=== PATIENT | female | born 1990 | race Caucasian/White ===

== ENCOUNTER → 2019-09-02 14:11 | Outpatient (CLI) | payer SELFPAY ==
[2019-09-02 16:07] LABS: BILIRUBIN NEGATIVE (NEGATIVE); GLUCOSE NEGATIVE (NEGATIVE); KETONE NEGATIVE (NEGATIVE); NITRITE NEGATIVE (NEGATIVE); UROBILINOGEN NORMAL (NORMAL)
== END | disposition home or self-care (01) ==
LOC: D.LDO 14:11
PROVIDERS: ATTEND Obstetrics & Gynecology
DX: O26.899 Other specified pregnancy related conditions, unspecified trimester (principal); Z3A.00 Weeks of gestation of pregnancy not specified; R11.0 Nausea

== ENCOUNTER 2019-09-05 08:21 | Outpatient (CLI) | payer SELFPAY ==
[2019-09-05 09:11] LABS: UDS - AMPHET NEGATIVE QUAL (NEGATIVE); UDS - BARB NEGATIVE QUAL (NEGATIVE); UDS - BENZO NEGATIVE QUAL (NEGATIVE); UDS - COCAINE NEGATIVE QUAL (NEGATIVE); UDS - OPIATE NEGATIVE QUAL (NEGATIVE); UDS - PCP NEGATIVE QUAL (NEGATIVE); UDS - THC NEGATIVE QUAL (NEGATIVE)
== END 2019-09-05 09:10 | disposition home or self-care (01) ==
LOC: D.LDO 08:21
PROVIDERS: ATTEND Obstetrics & Gynecology
DX: O26.899 Other specified pregnancy related conditions, unspecified trimester (principal); Z3A.00 Weeks of gestation of pregnancy not specified; N85.8 Other specified noninflammatory disorders of uterus; M54.9 Dorsalgia, unspecified

== ENCOUNTER → 2019-09-10 17:20 | Outpatient (CLI) | payer SELFPAY ==
[2019-09-10 18:23] LABS: BILIRUBIN NEGATIVE (NEGATIVE); GLUCOSE NEGATIVE (NEGATIVE); KETONE NEGATIVE (NEGATIVE); NITRITE NEGATIVE (NEGATIVE); SPECIFIC GRAVITY 1.015 (1.005-1.020); UROBILINOGEN NORMAL (NORMAL)
[2019-09-10 18:43] LABS: UDS - AMPHET NEGATIVE QUAL (NEGATIVE); UDS - BARB NEGATIVE QUAL (NEGATIVE); UDS - BENZO NEGATIVE QUAL (NEGATIVE); UDS - COCAINE NEGATIVE QUAL (NEGATIVE); UDS - OPIATE NEGATIVE QUAL (NEGATIVE); UDS - PCP NEGATIVE QUAL (NEGATIVE); UDS - THC NEGATIVE QUAL (NEGATIVE)
== END | disposition home or self-care (01) ==
LOC: D.LDO 17:20
PROVIDERS: ATTEND Obstetrics & Gynecology
DX: O26.893 Other specified pregnancy related conditions, third trimester (principal); Z3A.36 36 weeks gestation of pregnancy; N93.9 Abnormal uterine and vaginal bleeding, unspecified; R10.9 Unspecified abdominal pain

== ENCOUNTER 2019-09-21 03:56 | Outpatient (CLI) | payer SELFPAY ==
[2019-09-21 04:59] LABS: BILIRUBIN NEGATIVE (NEGATIVE); GLUCOSE NEGATIVE (NEGATIVE); KETONE NEGATIVE (NEGATIVE); NITRITE NEGATIVE (NEGATIVE); UROBILINOGEN NORMAL (NORMAL)
== END 2019-09-21 07:45 | disposition home or self-care (01) ==
LOC: D.LDO 03:56
PROVIDERS: ATTEND Obstetrics & Gynecology
DX: O26.899 Other specified pregnancy related conditions, unspecified trimester (principal); Z3A.00 Weeks of gestation of pregnancy not specified; R10.9 Unspecified abdominal pain; R06.02 Shortness of breath; R42 Dizziness and giddiness; R51 Headache

== ENCOUNTER 2019-09-30 11:43 | Outpatient (CLI) | payer SELFPAY ==
[2019-10-01] MEDS ORDERED: PROTONIX40 MG PO (05:49)
[2019-10-01 06:06] VITALS: BMI 31.8
== END 2019-09-30 12:09 | disposition home or self-care (01) ==
LOC: D.LDO 11:43
PROVIDERS: ATTEND Obstetrics & Gynecology
DX: O26.893 Other specified pregnancy related conditions, third trimester (principal); Z3A.39 39 weeks gestation of pregnancy

== ENCOUNTER 2019-10-01 04:59 | Inpatient (IN) | payer MEDICAID ==
[~2019-10-01] VITALS: Ht 165.1 cm; Wt 86.8 kg
[2019-10-01] MEDS ORDERED: PROTONIX40 MG PO (05:49)
[2019-10-01 06:06] VITALS: BP 120/80; Ht 165.1 cm; Wt 86.8 kg
[2019-10-01 06:32] LABS: HEMATOCRIT 30.5 % (36.0-48.0); HEMOGLOBIN 9.6 g/dL (12-16); MCH 26.3 pg (26.0-34.0); MCHC 31.5 g/dL (31.0-37.0); MCV 83.6 fL (80.0-100.0); RBC 3.65 10x6/uL (4.00-5.40); RDW 15.3 % (11.5-14.5); WBC 10.2 10x3/uL (4.8-10.8)
[2019-10-01 06:34] LABS: UDS - AMPHET NEGATIVE QUAL (NEGATIVE); UDS - BARB NEGATIVE QUAL (NEGATIVE); UDS - BENZO NEGATIVE QUAL (NEGATIVE); UDS - COCAINE NEGATIVE QUAL (NEGATIVE); UDS - OPIATE NEGATIVE QUAL (NEGATIVE); UDS - PCP NEGATIVE QUAL (NEGATIVE); UDS - THC NEGATIVE QUAL (NEGATIVE)
--- NOTE | 2019-10-01 17:35 | NUR ---
RECIEVED PT FROM L&D. PATIENT ORIENTATED TO ROOM. DENIES NEEDS OR PAIN AT THIS TIME. CALL LIGHT IN REACH, SIDE RAILS UP X 2.
[2019-10-01 17:50] LABS: BASOPHILS 0.1 % (0-2); EOSINOPHILS 0.7 % (0-7); HEMATOCRIT 26.8 % (36.0-48.0); HEMOGLOBIN 8.2 g/dL (12-16); IMMATURE GRANULOCYTES 0.5 % (0-5); LYMPHOCYTES 11.3 % (15-50); MCH 26.1 pg (26.0-34.0); MCHC 30.6 g/dL (31.0-37.0); MCV 85.4 fL (80.0-100.0); MONOCYTES 7.3 % (2-11); NEUTROPHILS 80.1 % (40-80); RBC 3.14 10x6/uL (4.00-5.40); RDW 15.3 % (11.5-14.5)
[2019-10-01 17:51] LABS: PLATELET COUNT 148 10x3/uL (130-400); WBC 12.8 10x3/uL (4.8-10.8)
--- NOTE | 2019-10-01 18:40 | NUR ---
ROUDNING WITH PATIENT. PATIENT DENIES ANY PAIN OR NEEDS AT THIS TIME. CALL LIGHT IN REACH, SIDE RAILS UP X2.
--- NOTE | 2019-10-01 19:24 | NUR ---
CASE MANAGEMENT IN ROOM AT THIS TIME
[2019-10-01 19:35] VITALS: BP 110/59
--- NOTE | 2019-10-01 19:35 | NUR ---
ASSESSMENT PER FLOW SHEET, VS OBTAINED, SALINE LOCK IN RIGHT FA INTACT WITH NO REDNESS OR EDEMA, FF, ML, U/1, LITE BLEEDING NOTED ON CAMILO PAD WITH NO CLOTS, PT REPORTS FLATUS, NO BM, AND VOIDING WITH NO DIFFICULTY, PT C/O CRAMPING, WILL ADM PAIN MED
--- NOTE | 2019-10-01 19:50 | NUR ---
ADM NORCO PO PER MD ORDERS, SEE EMAR, WITH CUP OF ICE FOR COLA, PT DENIES FURTHER NEEDS
--- NOTE | 2019-10-01 20:30 | NUR ---
PT BOTTLE FEEDING INFANT AT THIS TIME, PT STATES "I WAS JUST GETTING READY TO GET UP TO PEE, CAN I GET SOME MORE UNDERWEAR", CAMILO PANTIES AND PADS PROVIDED TO PT, PT DENIES FURTHER NEEDS
--- NOTE | 2019-10-01 21:35 | NUR ---
PT HOLDING INFANT, REQUESTS MOTRIN WHEN DUE, DENIES FURTHER NEEDS AT THIS TIME
--- NOTE | 2019-10-01 22:05 | NUR ---
PT HOLDING INFANT, ADM MOTRIN PO PER MD ORDERS, SEE EMAR, PT REQUESTED AND SERVED CRACKERS AND PEANUT BUTTER, DENIES FURTHER NEEDS
--- NOTE | 2019-10-01 23:40 | NUR ---
PT SITE LEADER LIGHT, PT REPORTS ACTS LIKE HE IS GAGGING AND CANT SWALLOW, TO [facility] FOR EVALUATION PER ASHWINI DURAND RN
--- NOTE | 2019-10-01 23:50 | NUR ---
INFANT TO ROOM VIA OPEN CRIB CART PER ASHWINI FITZPATRICK, RN
--- NOTE | 2019-10-02 00:10 | NUR ---
PT BOTTLE FEEDING INFANT, C/O CRAMPING, REPORTS PASSING A PEA SIZE CLOT, TALKED TO PT ABOUT CLOTS AND PP HEMORRHAGE, PT VERBALIZES UNDERSTANDING, ADM NORCO PO PER MD ORDERS, SEE EMAR, PT DENIES FURTHER NEEDS
--- NOTE | 2019-10-02 02:12 | NUR ---
PT RESTING WITH EYES CLOSED, RESP QUIET, NO DISTRESS NOTED, LEFT UNDISTURBED AT THIS TIME, IN OPEN CRIB CART AT BEDSIDE
--- NOTE | 2019-10-02 04:04 | NUR ---
PT RN ANGIOGRAPHY LIGHT, C/O CRAMPING, ADM MOTRIN AND NORCO PER MD ORDERS, SEE EMAR, WITH FRESH H20, PT REQUESTED AND SERVED CRACKERS AND PEANUT BUTTER, PT DENIES FURTHER NEEDS, INFANT IN OPEN CRIB CART AT BEDSIDE
[2019-10-02 06:11] LABS: RAPID PLASMA REAGIN Non Reactive (Non Reactive)
--- NOTE | 2019-10-02 06:22 | NUR ---
PT RESTING WITH EYES CLOSED, RESP QUIET, NO DISTRESS NOTED, LEFT UNDISTURBED AT THIS TIME, IN OPEN CRIB CART AT BEDSIDE
[2019-10-02 06:25] LABS: BASOPHILS 0.2 % (0-2); EOSINOPHILS 1.5 % (0-7); HEMATOCRIT 28.9 % (36.0-48.0); HEMOGLOBIN 9.1 g/dL (12-16); IMMATURE GRANULOCYTES 0.7 % (0-5); LYMPHOCYTES 22.4 % (15-50); MCH 26.4 pg (26.0-34.0); MCHC 31.5 g/dL (31.0-37.0); MCV 83.8 fL (80.0-100.0); MEAN PLATELET VOLUME 9.6 fL (7.4-10.4); MONOCYTES 8.3 % (2-11); NEUTROPHILS 66.9 % (40-80); PLATELET COUNT 191 10x3/uL (130-400); RBC 3.45 10x6/uL (4.00-5.40); RDW 15.4 % (11.5-14.5); WBC 10.3 10x3/uL (4.8-10.8)
--- NOTE | 2019-10-02 07:10 | NUR ---
ROUNDING ON PATIENT. PATIENT REQUESTING PAIN MEDICATION. PAIN MEDICATION GIVEN AT 4AM, NOT DUE TO 8AM. PATIENT VERBALIZED UNDERSTANDING THAT IT IS TO EARLY TO GIVE PAIN MED. PATIENT IN BED FEEDING BABY AT THIS TIME. DENIES ANY FURTHER NEEDS. CALL LIGHT IN REACH, SIDE RAILS UP X2.
[2019-10-02 07:46] VITALS: BP 107/61
--- NOTE | 2019-10-02 08:35 | NUR ---
ASSESSMENT COMPLETE. VSS. PATIENT IS A&O X 4. PATIENT STATES SMALL AMOUNT OF VAG BLEEDING. CHANGING CAMILO PAD EVERY 2-3 HOURS-AT TIMES WILL HAVE MINIMAL BLEEDING. RATES ABD CRAMPING /10. NARCO GIVEN PER ORDER. BABY IN CRIB SLEEPING. PATIENT DENIES ANY NEEDS AT THIS TIME. CALL LIGHT IN REACH, SIDE RAILS UP X 2.
--- NOTE | 2019-10-02 09:03 | NUR ---
ROUNDING WITH PATIENT. DENIES PAIN AT THIS TIME. BABY SLEEPING IN CRIB. PATIENT RESTING. DENIES NEEDS AT THIS TIME. CALL LIGHT IN REACH, SIDE RAILS UP X2.
--- NOTE | 2019-10-02 10:14 | NUR ---
DR HESTER ROUNDING WITH PATIENT.
--- NOTE | 2019-10-02 11:11 | NUR ---
ROUNDING WITH PATIENT. PATIENT SLEEPING. BREATHING IS EVEN AND UNLABORED. WILL LEAVE PATIENT SLEEPING.
--- NOTE | 2019-10-02 12:12 | NUR ---
ROUNDING WITH PATIENT. PATIENT RATES ABD CRAMPING/PAIN /10. REQUESTING NARCO TO KEEP FROM HAVING MORE PAIN. NARCO GIVEN PER ORDER. PATIENT DENIES ANY FURTHER NEEDS AT THIS TIME. PATIENT SITTING UP IN BED FEEDING BABY. CALL LIGHT IN REACH, SIDE RAILS UP X2.
[2019-10-02 13:02] VITALS: BP 100/56
--- NOTE | 2019-10-02 13:06 | NUR ---
ROUNDING WITH PATIENT. VSS. PATIENT SITTING UP IN BED FEEDING BABY. RATES PAIN /10. STATES BETTER AFTER NARCO AT 12PM. PATIENT DENIES ANY NEEDS AT THIS TIME. CALL LIGHT IN REACH, SIDE RAILS UP X2. PATIENTS MOM IN ROOM.
--- NOTE | 2019-10-02 14:30 | NUR ---
ROUNDING WITH PATIENT. PATIENT DENIES NEEDS. CALL LIGHT IN REACH. SIDE RAILS UP X 2.
--- NOTE | 2019-10-02 15:20 | NUR ---
ROUNDING WITH PATIENT. PATIENT RESTING IN BED. DENIES NEEDS AT THIS TIME. CALL LIGHT IN REACH, SIDE RAILS UP X2.
--- NOTE | 2019-10-02 16:10 | NUR ---
ROUNDING WITH PATIENT. PATIENT ASLEEP. BREATHING EVEN AND NONLABOR. WILL LET PATIENT CONTINUE SLEEPING.
--- NOTE | 2019-10-02 18:07 | NUR ---
PATIENT DISCHARGED BY [facility] VIA CARE WITH . DISCHARGE INSTRUCTIONS WENT OVER WITH PATIENT AND . EDUCATION PRINTED IN GRE[place] AND [place]. BOTH PAITENT AND DENIES ANY QUESTIONS.
[2019-10-02 18:15] VITALS: BP 123/71
--- NOTE | 2019-10-02 18:23 | NUR ---
ROUNDING WITH PATIENT. VSS. RATES PAIN 03/13. [facility] WATER CUP REFILLED. PATIENT DENIES NEEDS AT THIS TIME. CALL LIGHT IN REACH, SIDE RAILS UP X2. PATIENT SNUGGLING WITH BABY.
--- NOTE | 2019-10-02 19:00 | NUR ---
REPORT GIVEN BY BRIAN NORMAN
--- NOTE | 2019-10-02 19:25 | NUR ---
PT ASSESSMENT COMPLETED. PT HOLDING BABY IN BED. HEART SOUNDS WNL, LUNGS SOUND CLEAR, BS HEARD AND PT STATES SHE IS PASSING GAS. SHE IS AMBULATORY IN HER ROOM. SHE HAS A SALINE LOCK IN THE RIGHT FOREARM. NO SWELLING OR REDNESS NOTED AT THE SITE. FUNDUS IS FIRM. SHE STATES HER LOCHIA IS GETTING SMALLER. SHE STATES SHE IS NOT HURTING AT THIS TIME. SHE HAS TIMES WRITTEN ON HER COMMUNICATION BOARD FOR NEXT TIME MEDS ARE DUE.
[2019-10-02 19:43] VITALS: BP 107/64
--- NOTE | 2019-10-02 21:09 | NUR ---
PT C/O PAIN RATING IT A 4 WITH ACHE AND CRAMPING. NORCO 5 MG GIVEN. PT EATING PEANUT BUTTER AND CRACKERS.
--- NOTE | 2019-10-02 22:35 | NUR ---
PT RECEIVED MOTRIN 600 MG PO FOR PAIN.
--- NOTE | 2019-10-02 22:45 | NUR ---
SALINE LOCK REMOVED PER PT REQUEST. SHE UNDERSTANDS THAT IF SOMETHING UNFORSEEN HAPPENS SHE WILL GET ANOTHER ONE. SHE IS TAKING A SHOWER NOW.
--- NOTE | 2019-10-03 01:05 | NUR ---
PT REQUESTED A NORCO 5 FOR PAIN. SHE RATES HER PAIN AT A 4. SHE STATES SHE IS CRAMPING. THIS WAS GIVEN. SHE THEN ASKED FOR A SANDWICH TRAY. THIS WAS TAKEN TO HER ALONG WITH A CARTEN OF MILK.
--- NOTE | 2019-10-03 02:00 | NUR ---
PT IS RESTING WITH HER EYES CLOSED. RESPIRATIONS EVEN AND UNLABORED. NO NEEDS AT THIS TIME
--- NOTE | 2019-10-03 04:00 | NUR ---
PT REQUESTED MOTRIN. GIVEN 20 MINUTES EARLY. PT RATES HER PAIN AT A 7. PT UP TO BR. THEN HOLDING BABY.
--- NOTE | 2019-10-03 05:35 | NUR ---
NORCO 5 WAS GIVEN PO. PT RATES HER PAIN A 6 IN HER HIPS AND IN LOWER ABD.REGION. WHEN SHE GOT OUT OF BED HER JOINTS WERE STIFF.
[2019-10-03 07:47] VITALS: BP 104/58
--- NOTE | 2019-10-03 07:50 | NUR ---
ROUNDING WITH PATIENT. VSS. MMR AND RHOPHYLAC GIVEN IM. EDUCATION PROVIDED TO PATIENT. PATIENT VERBALIZED UNDERSTANDING AND AGREEMENT. PATIENT DENIES NEEDS AT THIS TIME. BABY IN CRIB ASLEEP. CALL LIGHT IN REACH, SIDE RAILS UP X2.
--- NOTE | 2019-10-03 09:30 | NUR ---
ASSESSMENT COMPLETE. SEE FLOW SHEET. RATES PAIN 06/11. NARCO GIVEN PER ORDER. PATIENT UP WALKING IN ROOM AND HALLWAY. STATES READY TO GO HOME. BABY ASLEEP IN CRIB. PATIENT DENIES ANY NEEDS. CALL LIGHT IN REACH, SIDE RAILS UP X2.
--- NOTE | 2019-10-03 10:15 | NUR ---
ROUNDING COMPLETE. PATIENT DENIES NEEDS. PATIENT SNUGGLING WITH BABY. CALL LIGHT IN REACH. SIDE RAILS UP X2.
--- NOTE | 2019-10-03 11:45 | NUR ---
ROUNDING WITH PATIENT. DENIES NEEDS. CALL LIGHT IN REACH, SIDE RAILS UP X2.
--- NOTE | 2019-10-03 12:32 | NUR ---
ROUNDING WITH PATIENT. PATIENT CURRENTLY EATING LUNCH. DENIES NEEDS AT THIS TIME. CALL LIGHT IN REACH, SIDE RAILS UP X2.
--- NOTE | 2019-10-03 14:01 | NUR ---
DR RODRIGEZ PHONED TO VERIFY THIS RN CAN ENTER DISCHARGE ORDER DISCUSSED THIS AM WHEN SHE ROUNDED. STATES YES, GIVES ORDER TO DISCHARGE PT TO HOME.
[2019-10-03] MEDS ORDERED: HYDROCODON-ACE1 EAC7 PO (14:11)
[2019-10-03] MEDS ORDERED: IBUPROFEN600 MG PO (14:13)
--- NOTE | 2019-10-03 14:45 | NUR ---
discharge instructions explained to pt, copies provided to pt, along with information/emergency sheets and prescriptions given. pt denies all questions. awaiting ride from [employer]. pt provided with extra peripads/panties/personal care items. pt denies all other needs at this time. srup x2, call light and phone within reach.
--- NOTE | 2019-10-03 15:00 | NUR ---
pt discharged off unit in wheelchair with infant in carseat, pt in stable condition, with chapperone from [facility].
== END 2019-10-03 15:00 | disposition home or self-care (01) | DRG 806 ==
LOC: D.LD 04:59 → D.WS 04:59
PROVIDERS: ADMIT Obstetrics & Gynecology; ATTEND Obstetrics & Gynecology
PROC: 3E033VJ Introduction of Other Hormone into Peripheral Vein, Percutaneous Approach (ICD-10-PCS; principal; 2019-10-01)
PROC: 10E0XZZ Delivery of Products of Conception, External Approach (ICD-10-PCS; 2019-10-01)
DX: O75.89 Other specified complications of labor and delivery (principal); Z37.0 Single live birth; O36.0930 Maternal care for other rhesus isoimmunization, third trimester, not applicable or unspecified; Z3A.39 39 weeks gestation of pregnancy

== ENCOUNTER 2019-12-04 05:27 | Day surgery (SDC) | payer MEDICAID ==
[2019-12-02 14:16] LABS: BASOPHILS 0.6 % (0-2); EOSINOPHILS 2.8 % (0-7); HEMOGLOBIN 11.5 g/dL (12-16); IMMATURE GRANULOCYTES 0.3 % (0-5); LYMPHOCYTES 37.4 % (15-50); MCH 25.2 pg (26.0-34.0); MCHC 31.1 g/dL (31.0-37.0); MCV 81.1 fL (80.0-100.0); MONOCYTES 7.9 % (2-11); RBC 4.56 10x6/uL (4.00-5.40); RDW 15.9 % (11.5-14.5); WBC 6.8 10x3/uL (4.8-10.8)
[2019-12-02 14:22] LABS: PLATELET COUNT 322 10x3/uL (130-400)
[~2019-12-04] VITALS: Ht 165.1 cm; Wt 81.6 kg
--- NOTE | ~2019-12-04 | OP ---
PATIENT NAME: ELISE MORGAN MEDICAL RECORD: [id number] :92 LOCATION:[facility] ADMISSION DATE: SURGEON: CHITO VILLANUEVA MD DATE OF OPERATION: 12/04/2019 PREOPERATIVE DIAGNOSIS: Multiparity, the patient desires permanent sterility. POSTOPERATIVE DIAGNOSIS: Multiparity, the patient desires permanent sterility. PROCEDURE: Laparoscopic tubal ligation via bipolar cautery. SURGEON: Chito Villanueva MD CURB ATTENDANT SURGEON: Tayo Gomez MD ANESTHESIA: General endotracheal. INTRAVENOUS FLUIDS: Per anesthesia record. FINDINGS: Grossly normal appearing uterus, fallopian tubes, and ovaries. COMPLICATIONS: None apparent. DESCRIPTION OF PROCEDURE: The patient was taken to the operating room where general anesthesia was achieved without difficulty. The patient was then prepped and draped in normal sterile fashion in the dorsal lithotomy position in the [facility]. Following prep and drape, the bladder was drained of approximately 100 mL of clear yellow urine and a sponge stick was placed into the vagina for uterine elevation. At this point, a 5 mm skin incision was made in the inferior aspect of the umbilicus. A 5 mm bladeless trocar was then used to attempt intraperitoneal placement; however, despite 2 attempts, intraperitoneal placement could not be obtained. At this point, a decision was made to convert to an open scope technique and the infraumbilical incision was extended to approximately 15 mm. At this point, the fascia was palpated and grasped with a Brijesh clamp times 2. This was then tented upward and entered using the Metzenbaum scissors. This was then extended bilaterally until the incision was approximately 10-12 mm. At this point, a finger was used to attempt to gently open the intraperitoneal space; however, the peritoneum was found to be dense and adhesive disease was suspected. At this point, Dr. Gomez from surgery was called to evaluate. Dr. Gomez came and evaluated and agreed that the peritoneum was difficult to penetrate and he felt a left upper quadrant entry was the safest route of proceeding with the case. Dr. Gomez used a Veress needle to insufflate the patient in the left upper quadrant. A 5 mm port was then placed and intraperitoneal placement was confirmed visually with the laparoscope. The Stacia trocar was then placed into the infraumbilical incision and the dense peritoneum was found to be difficult to penetrate with the Stacia. A blunt probe was then used to open the peritoneum below the level of the Stacia and intraperitoneal placement with Stacia was then confirmed visually. A 0 Vicryl was then used to anchor the Stacia trocar into the fascia in the umbilical port. Attention was then turned to the pelvis, where a 5 mm skin incision was made in the midline approximately 5 cm above the pubic symphysis. A second 5 mm trocar was then placed under direct visualization of the laparoscope. The fallopian tubes were identified in their entirety and fimbriated ends were then noted. A 5-6 cm of the midportion of the fallopian tube was then completely desiccated using the Bovie cautery using the [facility] OPERATIVE REPORT [id number] ELISE MORGAN. Good hemostasis was noted on both sites and the patient was then desufflated. Good hemostasis was again noted with lowered pressure. The patient was then fully desufflated and the trocars were removed. The infraumbilical incision was repaired with 0 Vicryl until the fascial defect was completely closed. The skin was then repaired with 3-0 Vicryl in an interrupted fashion times 3. The patient tolerated the procedure well, transferred to postanesthesia recovery stable without incident. NTS:[id number] Voice Confirmation ID: [id number] DOCUMENT ID: [id number] CHITO VILLANUEVA MD CC: [id number] DICTATION DATE: 12/07/19606 [facility] FUNDRAISER: 12/07/191802 [facility] 12/04/[address] [facility] [address] [place] [address]
[~2019-12-04 05:27] MED LIST: HYDROCODON-ACE1 EAC7 PO; IBUPROFEN600 MG PO; PROTONIX40 MG PO
[2019-12-04 07:30] VITALS: BP 102/61; Ht 165.1 cm; Wt 81.6 kg
[2019-12-04 08:53] LABS: HCG URINE NEGATIVE (NEGATIVE)
--- NOTE | 2019-12-04 12:39 | NUR ---
PATIENT STATED PAIN 3 ON SCALE. STATED NO PAIN MED RIGHT NOW IT IS BEARBLE AND DOES NOT FEEL BAD BUT JUST PRESSURE THAT DR HESTER TOLD HER SHE WOULD BE FEELING. NAUSEA WENT AWAY WITH ZOFRAN GIVEN BY ANESTHESIA. NO VOMITING. PATINET STATES RELIEF.
--- NOTE | 2019-12-04 12:57 | NUR ---
1252 PT BEGINNING TO HAVE PAIN IN ABDOMEN AND RIGHT SHOULDER AND RATES THE DISCOMFORT A 3 OUT OF 10 ON THE PAIN SCALE.
--- NOTE | 2019-12-04 15:24 | NUR ---
1345 IV D/C'D WITH CANNULA INTACT, PRESSURE HELD AND DRSG PLACED. DISCHARGE INSTRUCTIONS GIVEN AND PT VERBALIZED AN UNDERSTANDING. ABD BANDAIDS CDI, ABD FIRM AND ROUNDED AND EXPECTED. DISCHARGED IN STABLE CONDITION AND W/O C/O
--- NOTE | 2019-12-09 18:25 | OP ---
PATIENT NAME: ELISE MORGAN MEDICAL RECORD: [id number] :92 LOCATION:[facility] ADMISSION DATE: SURGEON: NAVYA ALFRED MD DATE OF OPERATION: 12/04/[address] Chito Villanueva with the initial phases of Ms. Morgan' operative procedure. I was called due to difficulty gaining access to the peritoneal cavity. Dr. Villanueva had already made the umbilical incision. Anyhow, I placed some stay sutures of 0 Vicryl on either side of the fascia. We inserted the Stacia trocar and initially after some dissection, we thought we were intraperitoneal but actually we were still extraperitoneal within the prevesicular preperitoneal flap. I then made an incision in the left upper quadrant. Veress needle was inserted through the skin incision into the peritoneal cavity. CO2 insufflation was begun. Once a sufficient pneumoperitoneum had been achieved, a 5-mm trocar was inserted. Abdominal survey was undertaken. It revealed that the Stacia trocar was still preperitoneal. I noted no evidence of an iatrogenic injury during insertion of the left upper quadrant trocar or attempts at insertion of the Stacia trocar. Under laparoscopic guidance, Dr. Villanueva was able to advance the Stacia trocar, so that it was intraperitoneal. This is at the time when I went ahead and scrubbed out. My involvement in the operation was a minor involvement. TRANSINT:[id number] Voice Confirmation ID: [id number] DOCUMENT ID: [id number] NAVYA ALFRED MD at 1825 CC: [id number] DICTATION DATE: 12/04/19 1724 [employer]: 12/05/19 0025 [facility] 12/04/19 [facility] [address] [place] [address]
== END 2019-12-04 14:00 | disposition home or self-care (01) ==
LOC: D.OPS 05:27 → D.PAN 08:40 → D.OPS 09:30
PROVIDERS: ATTEND Obstetrics & Gynecology
DX: Z30.2 Encounter for sterilization (principal); Z64.1 Problems related to multiparity; Z39.2 Encounter for routine postpartum follow-up; I10 Essential (primary) hypertension; K21.9 Gastro-esophageal reflux disease without esophagitis

== ENCOUNTER 2019-12-06 10:08 | Emergency (ER) | payer MEDICAID ==
[~2019-12-06] VITALS: Ht 165.1 cm; Wt 86.4 kg
[2019-12-06 10:12] VITALS: Ht 165.1 cm; Wt 86.4 kg
[2019-12-06] MEDS ORDERED: CLINDAMYCIN HC300 MG PO (10:47)
[2019-12-06 10:56] LABS: HEMATOCRIT 35.8 % (36.0-48.0); HEMOGLOBIN 11.2 g/dL (12-16); MCH 25.3 pg (26.0-34.0); MCHC 31.3 g/dL (31.0-37.0); MCV 80.8 fL (80.0-100.0); MEAN PLATELET VOLUME 8.9 fL (7.4-10.4); PLATELET COUNT 277 10x3/uL (130-400); RBC 4.43 10x6/uL (4.00-5.40); RDW 15.9 % (11.5-14.5); WBC 8.8 10x3/uL (4.8-10.8)
[2019-12-06 11:06] LABS: CALC OSMOLALITY 269 mosm/kg (275-300); CALCIUM 8.5 mg/dL (8.5-10.1); CARBON DIOXIDE 24.1 mmol/L (21.0-32.0); CHLORIDE - SERUM 103 mmol/L (98-107); CREATININE - SERUM 0.8 mg/dL (0.6-1.3); GLUCOSE 96 mg/dL (74-106); POTASSIUM - SERUM 3.8 mmol/L (3.5-5.1); SODIUM 134 mmol/L (136-145); UREA NITROGEN 18 mg/dL (7-18); eGFR NON AFRICAN AMERICAN > 90 mL/min (90-120)
[2019-12-06 11:12] LABS: ALBUMIN 3.2 g/dL (3.4-5.0); ALKALINE PHOSPHATASE 77 U/L (30-120); ALT (SGPT) 25 U/L (10-68); BILIRUBIN - TOTAL 0.11 mg/dL (0.2-1.3); PROTEIN - SERUM 7.2 g/dL (6.4-8.2)
[2019-12-06 11:23] LABS: BASOPHILS 1 % (0-2); EOSINOPHILS 2 % (0-7); LYMPHOCYTES 28 % (15-50); MONOCYTES 6 % (2-11); NEUTROPHILS 61 % (40-80); PLATELET ESTIMATE NORMAL
[2019-12-06 11:48] VITALS: BP 128/87
== END 2019-12-06 11:48 | disposition home or self-care (01) ==
LOC: D.ER 10:08
PROVIDERS: Family Medicine
DX: N99.89 Other postprocedural complications and disorders of genitourinary system (principal); L03.90 Cellulitis, unspecified; I10 Essential (primary) hypertension; K21.9 Gastro-esophageal reflux disease without esophagitis